=== PATIENT | female | born 2005 | race Caucasian/White ===

== ENCOUNTER 2023-05-13 20:26 | Emergency (ER) | payer OTHER, BC, SELFPAY ==
[2023-05-13 20:31] VITALS: BP 119/71; PULSE 102; TEMP 37.2; O2SAT 99; BMI 22.7
--- NOTE | 2023-05-13 20:31 | ED.BURNSMOKE ---
HPI - Burn/Smoke Inhalation General Chief complaint: Burn/Smoke Inhalation Stated complaint: Burn to both legs at work Time Seen by Provider: 05/13/23 22:05 Source: patient Mode of arrival: ambulatory Limitations: no limitations History of Present Illness HPI Narrative: 18 yold female presents to the ED for bilateral posterior leg pain caused by cooking oil from work. Patient states the hose at her job contains the oil and was only held together by tape. The tape go lose and oil fell on patient bilatearal posterior calf burn. Patient denies any other trauma or blackburn elswhere on the body. patient up todate with tetanus. Related Data Previous Rx's Medication Instructions Recorded bacitracin 500 unit/gram topical 1 appl topical TID #30 grams 05/13/23 ointment Allergies Allergy/AdvReac Type Severity Reaction Status Date / Time No Known Allergies Allergy Unverified 06/08/20 17:13 [No Known Allergies*] Review of Systems Review of Systems: bilataerl posterior calf blackburn Yes all other systems are reviewed and are negative PMFSH Social History Social History Advance Directives: No Advance Directives Information Provided: No Physical Exam Vital Signs: Vital Signs: Last Vital Signs Temp 98.9 F 05/13/23 20:31 Pulse 102 H 05/13/23 20:31 BP 119/71 05/13/23 20:31 Pulse Ox 99 05/13/23 20:31 O2 Del Method Room Air 05/13/23 20:31 BMI result Body Mass Index 22.7 Const: General: cooperative, healthy appearing, comfortable, no acute distress, well developed, alert, awake and Physically active Orientation/consciousness: oriented to person, oriented to place, oriented to time and patient oriented x3 HEENT: Head: Yes normal to inspection, Yes No palpable skull fracture present, Yes normocephalic, Yes atraumatic and No abrasion Eyes: General: appearance normal, both eyes and all related structures Neck: Neck: Yes normal visual inspection, Yes full ROM, Yes no lymphadenopathy, Yes no meningeal signs, Yes trachea midline, Yes supple, No anterior neck swelling and No tender Chest: Chest palpation & inspection: normal inspection of the chest and normal palpation of entire chest wall Resp: Effort & Inspection: normal respiratory effort and able to speak in complete sentences Auscultation: clear to auscultation bilaterally Cardio: Jugular venous distension: no JVD Heart sounds: S1 normal heart sound present and S2 normal heart sound present GI: Inspection: Yes normal to inspection and No abdominal wall ecchymosis Palpation (GI): Soft to palpation, not firm, nontender, no guarding and not rigid : General: No CVA tenderness and Yes no CVA tenderness Back/Spine/Pelvis: Back: no CVA tenderness, No CVA tenderness and No back tenderness Skin: General skin exam: elasticity normal and turgor normal Neuro: General: oriented to person, oriented to place, oriented to time, patient oriented x3, gait normal, tone normal, moves all extremities, Normal light touch and pain sensation, no meningeal signs, no focal motor deficits, CN's II-XI intact bilaterally and normal sensation to monofilament Extrem: Upper/lower leg/hip images: 1. Positive second-degree burn ( blisters). Negative for circular burn. Negative for blackburn around joints. Patient has complete range of motion of extremity. Motor/ neuro/vascular exam intact. 2. Positive second-degree burn ( blisters). Negative for circular burn. Negative for blackburn around joints. Patient has complete range of motion of extremity. Motor/ neuro/vascular exam intact. Psych: Appearance: grossly normal, well kempt and not disheveled Course Course Course Narrative: RME: 18 yo F w/no sig PMHx c/o burn to bilateral LE's (calves) s/p hot oil exploding and spilling on legs at work [employer]. +large blackburn noted to bilateral calves with some sloughing. +clear drainage noted will need wound care/oil cleaned off skin & dressings applied Full HPI, ROS and PE to be performed by primary ED provider. Medications Administered Discontinued Medications Generic Name Dose Route Start Last Admin Trade Name Freq PRN Reason Stop Dose Admin Diphtheria/Tetanus/Acell Pertussis 0.5 ml 05/13/23 22:05 05/13/23 22:56 Diphth,Pertus(Acell),Tet Adult 0.5 Ml Syringe IM 05/13/23 22:06 Not Given .ONCE ONE Medical Decision Making Medical Decision Making MDM Narrative: 18 year old female with blackburn on bilateral calves caused by oill at work. patient denies any other trauma. Patient states up-to-date with tetanus. Negative for any circumferential burn, burn is not on any joint, burn is 2nd degree, burn does not involve feet or joints. burn clean with sterile saline and bacitracin placed on wound. Patient discharged with bacitracin Differential Diagnosis Differential Diagnoses: The differential diagnosis associated with the presentation includes ( second-degree burn, cellulitis, 1st degree burn, third-degree burn,) Admission/Observation Consideration of admission/observation: Escalation of care including admission/observation considered Independent Historian Clinical information obtained from an independent historian. History obtained from or confirmed by: Parent and Friend External Record Review External record reviewed: Other (prior ED visiit) Prescription Management I considered prescription management with: Other (bacitracin) Discharge Plan Discharge Clinical Impression: Burn Patient Disposition: Home, Self-Care Instructions: Second Degree Burn (ED) Additional Instructions: return to the ED for any redness, swelling, pus discharge, foul odor, worsening pain, fever, chills, red streaks, red rash, bluish black discoloration, or any other concerning symptoms. Please follow-up with [facility]. Prescriptions: New bacitracin 500 unit/gram ointment 1 appl topical TID Qty: 30 0RF Referrals: [facility] [Provider Group] (Second degree burn occur at work) Stand Alone Forms: Work/School Release Interventions: ED Discharge Assessment Last Done: 05/13/23 22:52 Discharge Date/Time: 05/13/23 22:57 Print Language: Polish
--- NOTE | 2023-05-13 22:54 | PC.NURSE ---
blackburn on bilateral calves cleansed with castile soap and tepid water, patted dry, applied bacitracin to nonstick dressings followed by kerlix and tape. pt verbalizes understanding to check wounds frequently , cleanse and change dressings daily
== END 2023-05-13 22:57 | disposition home or self-care (01) ==
PROVIDERS: Emergency Provider Emergency Medicine; PCP Pediatrics
DX: T24.231A Burn of second degree of right lower leg, initial encounter (principal); T24.232A Burn of second degree of left lower leg, initial encounter; X10.2XXA Contact with fats and cooking oils, initial encounter; Y93.89 Activity, other specified; Y92.129 Unspecified place in nursing home as the place of occurrence of the external cause; Y99.0 Civilian activity done for income or pay
CPT/HCPCS: 99282; 99283

== ENCOUNTER 2023-05-23 09:03 | Outpatient (RCR) | payer OTHER, SELFPAY | END 2023-05-23 16:00 | disposition home or self-care (01) | LOC: HO.WCC 09:03 | PROVIDERS: PCP Pediatrics; Visit Provider Physician Assistant | DX: T24.232D Burn of second degree of left lower leg, subsequent encounter (principal); T24.231D Burn of second degree of right lower leg, subsequent encounter; T31.0 Burns involving less than 10% of body surface; X10.2XXD Contact with fats and cooking oils, subsequent encounter | CPT/HCPCS: 99213 ==